=== PATIENT | male | born 1995 | race African-American/Black ===

== ENCOUNTER 2018-11-11 16:07 | Emergency (ER) | payer OTHER ==
[2018-11-11 16:16] VITALS: BP 136/76; PULSE 73; TEMP 98; BMI 26.9
[2018-11-11] MEDS ORDERED: DIPHTH,PERTUSS(ACELL),TET 0.5 ML DISP.SYRIN IM ONE ×2 (16:43→16:48)
[2018-11-11] MEDS ORDERED: LIDOCAINE HCL 1%, 10 MG/ML (20ML VIAL) ONE (16:49)
--- NOTE | 2018-11-11 17:09 | PDOC ---
History of Present Illness - General Chief Complaint: Foreign Body (FB) Stated Complaint: SPLINTER REMOVAL Time Seen by Provider: 11/11/18 16:18 History Source: Patient Exam Limitations: No Limitations - History of Present Illness Initial Comments: 11/11/18 17:39 Was sliding across wooden floor, and impaled himself on a wooden splinter to his right butt cheek. States was able to extract part of the splinter but nose has a remaining piece. Incident occurred yesterday. Denies fever, denies drainage or bleeding. Occurred: reports: yesterday Severity: reports: mild Modifying Factors: improves with: None Loss of Consciousness: no loss of consciousness Associated Symptoms (Fall): denies symptoms Past History - Travel Traveled outside of the country in the last 30 days: No Close contact w/someone who was outside of country & ill: No - Past Medical History Allergies/Adverse Reactions: Allergies Allergy/AdvReac Type Severity Reaction Status Date / Time No Known Allergies Allergy Verified 11/11/18 16:12 Home Medications: Ambulatory Orders NK [No Known Home Medication] 11/11/18 COPD: No - Suicide/Smoking/Psychosocial Hx Smoking History: Never smoked Review of Systems - Review of Systems Able to Perform ROS?: Yes Is the patient limited [place] proficient: Yes Constitutional: Yes: Symptoms Reported HEENTM: No: Symptoms Reported Respiratory: No: Symptoms reported Musculoskeletal: Yes: See HPI. No: Symptoms Reported Integumentary: Yes: Symptoms Reported, Other (site ) All Other Systems: Reviewed and Negative *Physical Exam - Vital Signs Last Vital Signs Temp Pulse Resp BP Pulse Ox 98 F 73 16 136/76 100 11/11/18 16:15 11/11/18 16:15 11/11/18 16:15 11/11/18 16:15 11/11/18 16:15 - Physical Exam General Appearance: Yes: Nourished, Appropriately Dressed, Apparent Distress, Mild Distress HEENT: positive: ROSANA, Normal ENT Inspection, TMs Normal Neck: positive: Supple. negative: Tender Respiratory/Chest: positive: Lungs Clear Extremity: positive: Normal Capillary Refill Integumentary: positive: Normal Color, Other (Palpable FB to right inner buttcheek- no puncture wound noted or drainage ) Neurologic: positive: ict programmer II-XII NML intact, Fully Oriented, Alert, Normal Mood/ Affect, Normal Response, Motor Strength 5/5 Moderate Sedation - Procedure Monitoring Vital Signs: Procedure Monitoring Vital Signs Temperature 98 F 11/11/18 16:15 Pulse Rate 73 11/11/18 16:15 Respiratory Rate 16 11/11/18 16:15 Blood Pressure 136/76 11/11/18 16:15 O2 Sat by Pulse Oximetry (%) 100 11/11/18 16:15 Procedures - Incision and Drainage I&D Site: Left: Buttock (Extraction of 2cm piece of wood from Incision site) Anesthesia: 1% Lidocaine Blade Size: 11 Complications: none Dressing: Yes Progress: 11/11/18 17:36 Tetnus / diptheria / pertussis booster update Progress Note - Progress Note Progress Note: Foreign body extraction from left buttock, tetanus/diphtheria/pertussis booster updated today *DC/Admit/Observation/Transfer Diagnosis at time of Disposition: Foreign body (FB) in soft tissue - Discharge Dispostion Disposition: HOME Condition at time of disposition: Stable Decision to Admit order: No - Referrals Referrals: Pepito Lane [Primary Care Provider] - - Patient Instructions Printed Discharge Instructions: DI for Removal of Foreign Body From Skin Additional Instructions: Rest, keep area elevated. Avoid strenuous activity or exercise until wound is healed Use hot soaks to area to bring more blood to the surface and encourage drainage May change dressings as needed to keep clean - Allow water from shower to wash area thoroughly for 2-3 minutes, and pat dry upon exit of shower and replace dressing. Change his dressing daily until the wound is completely healed. May use Tylenol or Motrin for mild pain relief Your tetanus/diphtheria/pertussis booster was updated today Continue all medications as prescribed Followup with private physician in 2-3 days for wound check Return to emergency Department for worsening swelling, pain, redness, fevers as needed - Post Discharge Activity Forms/Work/School Notes: Back to Work
== END 2018-11-11 17:44 | disposition home or self-care (01) ==
LOC: JERFT 16:07
PROC: 0HC8XZZ Extirpation of Matter from Buttock Skin, External Approach (ICD-10-PCS; principal; 2018-11-11)
PROC: 3E0234Z Introduction of Serum, Toxoid and Vaccine into Muscle, Percutaneous Approach (ICD-10-PCS; 2018-11-11)
DX: S30.850A Superficial foreign body of lower back and pelvis, initial encounter (principal); W45.8XXA Other foreign body or object entering through skin, initial encounter; Y93.89 Activity, other specified; Y92.018 Other place in single-family (private) house as the place of occurrence of the external cause; Y99.8 Other external cause status
CPT/HCPCS: 90715; 99281-25